=== PATIENT | male | born 1985 | race Caucasian/White ===

== ENCOUNTER → 2024-10-16 | Outpatient (CLI) | payer OTHER, SELFPAY ==
[2024-10-16 10:28] LABS: Collection Type, Urine Clean Catch; Squamous Epithelial Cell,Urine 0 /hpf (0-5)
[2024-10-16 10:39] LABS: Basophils # (Auto) 0.1 Thou/mm3 (0.0-0.2); Basophils % (Auto) 1 % (0-2.5); Eosinophils # (Auto) 0.2 Thou/mm3 (0.0-0.5); Eosinophils % (Auto) 2 % (0-10); Hemoglobin 15.7 g/dL (13.5-16.0); Immature Granulocytes % (Auto) 1 % (0-0); Immature Granulocytes Auto 0.07 Thou/mm3 (0.00-0.00); Lymphocytes # (Auto) 2.2 Thou/mm3 (1.0-4.8); Lymphocytes % (Auto) 33 % (10-50); Mean Corpuscular HGB Conc 35.7 g/dl (31.0-37.0); Mean Corpuscular Hemoglobin 31.3 pg (25.0-35.0); Mean Corpuscular Volume 88 fL (80-100); Monocytes # (Auto) 0.7 Thou/mm3 (0.0-0.8); Monocytes % (Auto) 10 % (0-12); Neutrophils # (Auto) 3.6 Thou/mm3 (1.8-7.7); Neutrophils % (Auto) 53 % (37-80); Nucleated Red Blood Cell % 0 /100 WBC (0); Platelet Count 191 Thou/mm3 (140-440); RDW Standard Deviation 39.2 fL (35.1-43.9); Red Blood Count 5.02 Miln/mm3 (4.50-5.90); White Blood Count 6.8 Thou/mm3 (3.8-10.6)
[2024-10-16 10:56] LABS: Glucose Estimated Average 100 mg/dL (80-131); Hemoglobin A1C 5.1 % Hgb (4.8-6.0)
[2024-10-16 11:05] LABS: Alanine Aminotransferase 92 U/L (10-49); Albumin, Serum 4.5 gm/dL (3.5-5.0); Albumin/Globulin Ratio 1.5 (1.2-2.2); Alkaline Phosphatase 92 U/L (46-116); Anion Gap 6 (7-16); Aspartate Amino Transferase 26 U/L (0-34); BUN/Creatinine Ratio 18 Ratio (12-20); Bilirubin,Total 0.4 mg/dL (0.3-1.2); Blood Urea Nitrogen 16 mg/dL (9-23); Calcium 9.8 mg/dL (8.3-10.6); Calcium (Corrected) 9.8 mg/dL (8.5-10.1); Carbon Dioxide 26.3 mMol/L (20.0-31.0); Cardiac Risk Estimate 5.3 RATIO (4.0-6.7); Chloride 105 mMol/L (98-107); Cholesterol 201 mg/dL (132-200); Creatinine (Component) 0.9 mg/dL (0.6-1.3); Glucose 102 mg/dL (74-106); HDL Cholesterol 38 mg/dL (40-60); LDL Cholesterol,Calculated 129 mg/dL (0-130); Osmolality,Calculated 275 (275-295); Potassium 4.4 mMol/L (3.4-5.1); Sodium 137 mMol/L (136-145); Thyroid Stimulating Hormone 1.32 uIU/mL (0.55-4.78); Total Protein 7.5 gm/dL (5.7-8.2); Triglycerides 171 mg/dL (30-150); eGFR > 60 See Note
[2024-10-16 11:07] LABS: Vitamin D 25 Hydroxy Total 19.7 ng/mL (7.3-40.2)
[2024-10-16 11:39] LABS: Bilirubin,Urine Negative (Negative); Blood,Urine Negative (Negative); Clarity,Urine Clear (Clear/Hazy); Color,Urine Lt-Yellow (Lt Yel-Yel); Culture Indicated,Urine Not Indicated; Glucose, Urine Negative (Negative); Ketones,Urine Negative (Negative); Leukocyte Esterase,Urine Negative (Negative); Nitrite,Urine Negative (Negative); PH,Urine 5.5 (5.0-7.0); Protein,Urine Negative (Neg - Trace); RBC,Urine 1 /hpf (0-3); Specific Gravity,Urine 1.027 (1.001-1.035); Urobilinogen,Urine Negative mg/dL (0.0-1.0); WBC,Urine 1 /hpf (0-5)
== END | disposition home or self-care (01) ==
PROVIDERS: PCP Family Medicine; Referring Provider Registered Nurse; Visit Provider Registered Nurse
DX: R79.89 Other specified abnormal findings of blood chemistry (principal)
CPT/HCPCS: 36415; 80053; 80061; 81001; 82306; 83036; 84443; 85025

== ENCOUNTER → 2025-01-11 | Outpatient (BNVA) | payer OTHER, SELFPAY | END | disposition home or self-care (01) | PROVIDERS: PCP Family Medicine; Referring Provider Family Medicine; Visit Provider Urology | DX: A63.0 Anogenital (venereal) warts (principal); Z30.2 Encounter for sterilization; E66.9 Obesity, unspecified; Z68.31 Body mass index [BMI] 31.0-31.9, adult | CPT/HCPCS: 81003; 99212; G0463 ==

== ENCOUNTER 2025-01-24 10:50 | Day surgery (SDC) | payer OTHER, SELFPAY ==
[2025-01-23 10:34] VITALS: BMI 31.8
[2025-01-24 11:21] VITALS: BP 139/93; PULSE 75; RESP 18; TEMP 36.9; O2SAT 97; BMI 30.9
[2025-01-24 15:03] VITALS: BP 145/98; PULSE 88; RESP 20; TEMP 36.7; O2SAT 96
--- NOTE | 2025-01-24 15:03 | SUR.PHASEII ---
1506 Patient arrived to recovery awake and talking to staff, breathing unlabored, vital signs stable, denies pain, dressing intact to penis; ointment, telfa, gauze, silk tape, no bleeding noted, lung sounds clear upon auscultation, bilateral radial pulses present when palpated, report received from Bjorn MAYER and Dr. Perez
[2025-01-24 15:08] VITALS: BP 142/98; PULSE 70; RESP 20; O2SAT 95
[2025-01-24 15:13] VITALS: BP 144/96; PULSE 72; RESP 15; O2SAT 97
[2025-01-24 15:18] VITALS: BP 137/94; PULSE 83; RESP 16; O2SAT 96
--- NOTE | 2025-01-24 15:24 | PD.SUROPNT ---
Date of Procedure 01/24/25 Pre Op Diagnosis Multiple lesions skin of the penis and scrotum rule out condylomatous lesions Post Op Diagnosis Same Procedure CO2 laser ablation of the lesion excision biopsy Findings Multiple lesion over the skin of the penis and the scrotum rule out condyloma's Procedure Description This is a 39-year-old gentleman who is seen in urology office on consultation he had multiple lesion over the skin of the penis and scrotum rule condyloma he was recommended excisional biopsy and laser ablation of the lesion procedure and complications were discussed with the patient in great detail informed consent is obtained Patient was brought to the operating room in a satisfactory condition after appropriate premedication was put on the operating table in a supine position IV sedation was given parts were prepped and draped in the usual sterile fashion. Local anesthesia was instilled into the multiple lesion over the skin of the penis and scrotum. With the CO2 laser laser ablation of the lesions were carried out and also I obtained excisional biopsy for pathology at the end of the procedure Silvadene ointment was applied to the skin and sterile dressings are applied patient after having tolerated the procedure well was sent to recovery room in a satisfactory condition to be discharged home to be followed in urology office Anesthesia local and IV sedation Pathology / specimen Other (Lesion of the skin of the penis) Estimated Blood Loss 0.2 Condition Stable Disposition PACU Surgeon Ramón Marcos MD Surgical Staff Operation Date: 01/24/25 13:20 Case Staff Anesthesiologist: Mert Perez
[2025-01-24 15:33] VITALS: BP 148/102; PULSE 68; RESP 20; TEMP 36.9; O2SAT 97
--- NOTE | 2025-01-24 15:45 | SUR.PHASEII ---
1545 Patient meets discharge criteria from recovery, awake and alert, breathing unlabored, vital signs stable, denies pain, dressing intact; no bleeding noted, patient ate two jello and drinking 7up; tolerated well, denies nausea, patient able to dress himself into his clothing, discharge instructions given via telephone on speaker phone to patient and patients due to patients having small children, both receptive of instructions, patient signed discharge instructions at car-side, patient given all his belongings prior to discharge, transported via wheelchair and left in a private vehicle.
== END 2025-01-24 15:47 | disposition home or self-care (01) ==
PROVIDERS: PCP Family Medicine; Referring Provider Urology; Visit Provider Urology
PROC: (CPT 54057; principal; 2025-01-24 13:05)
DX: A51.31 Condyloma latum (principal); L82.1 Other seborrheic keratosis
CPT/HCPCS: 54057; A4217; A4649; J2250; J2704; J3010; J3490; A9270; J0665

== ENCOUNTER → 2025-04-13 | Outpatient (BNVA) | payer OTHER, SELFPAY | END | disposition home or self-care (01) | PROVIDERS: PCP Family Medicine; Referring Provider Family Medicine; Visit Provider Urology | DX: N40.0 Benign prostatic hyperplasia without lower urinary tract symptoms (principal); Z30.2 Encounter for sterilization; E66.9 Obesity, unspecified; Z68.31 Body mass index [BMI] 31.0-31.9, adult | CPT/HCPCS: 81003; 99212; G0463 ==

== ENCOUNTER 2025-06-06 11:55 | Day surgery (SDC) | payer OTHER, SELFPAY ==
[2025-06-05 12:36] VITALS: BMI 30.4
--- NOTE | 2025-06-05 12:45 | SUR.PREOP ---
Interview over the phone, Pt will come in tomorrow at 1200, NPO and trim pubic hair.
[2025-06-06] VITALS (8 sets, daily range): BP systolic 109–138; BP diastolic 65–91; PULSE 67–83; RESP 13–20; TEMP 36.4–36.9; O2SAT 95–97; BMI 30.4
--- NOTE | 2025-06-06 18:11 | PD.SUROPNT ---
Date of Procedure 06/06/25 Pre Op Diagnosis Elective sterilization Post Op Diagnosis Same Procedure Bilateral vasectomy Findings Bilateral vas no pathology Procedure Description Indication for procedure this is 39-year-old gentleman he has 5 children desired bilateral vasectomy procedure and complications were discussed with patient in great detail informed consent is obtained. Literature regarding bilateral vasectomy was provided to the patient patient understood very well there is no warranty for permanent sterilization Patient was brought to the operating room in a satisfactory condition after appropriate premedication was put on the operating table in a supine position he was appropriately identified by surgeon and operating room staff site scope and indication of the procedure were reconfirmed with the patient general anesthesia was given uneventfully, parts were prepped and draped in a usual sterile fashion. Next the right vas deferens was palpated between 2 fingers and a thumb 2% lidocaine with quarter percent Marcaine was instilled appropriately vertical skin incision was made proper hemostasis was secured. Next the vas deferens was brought into the incision it was from its various fascial coverings between 2 silver clips centimeter of the vas deferens was excised. The lumen of the vas deferens was diathermized with coagulation diathermy distal end of the vas deferens was buried between various fascial layers. Skin was approximated with 3-0 chromic. Similar procedure was repeated on the opposite side. Next this sterile dressings were applied. Pressure bandage was given Patient having tolerated the procedure well and was sent to recovery room in a satisfactory condition to be discharged home with full postoperative instructions were verbally as well as in writing to be followed in urology office in 6 weeks' time. Anesthesia GETA Pathology / specimen None Estimated Blood Loss 0.2 Condition Stable Disposition PACU Surgeon Ramón Marcos MD Surgical Staff Operation Date: 06/06/25 14:00 <No data on this case meets the specified criteria>
--- NOTE | 2025-06-06 18:47 | SUR.PHASEI ---
pt received to [facility]. oral airway out on arrival. denies pain and nausea. vss. breathing even and unlabored. dressing cdi. report from dr pina and nurse ramiro.
--- NOTE | 2025-06-06 19:47 | SUR.PHASEII ---
pt discharged with via wheel chair. vss. dressing remains cdi. both verbalized dc instructions. signed by .
== END 2025-06-06 19:47 | disposition home or self-care (01) ==
PROVIDERS: Referring Provider Urology; Visit Provider Urology
PROC: (CPT 55250; principal; 2025-06-06 14:00)
DX: Z30.2 Encounter for sterilization (principal)
CPT/HCPCS: 55250; A4217; A4649; J2704; J3010; J3490; A9270; J0665

== ENCOUNTER → 2025-09-04 | Outpatient (BNVA) | payer OTHER, SELFPAY | END | disposition home or self-care (01) | PROVIDERS: PCP Family Medicine; Referring Provider Family Medicine; Visit Provider Physician Assistant | DX: Z98.52 Vasectomy status (principal) | CPT/HCPCS: Q3014 ==

== ENCOUNTER → 2025-09-10 | Outpatient (CLI) | payer OTHER, SELFPAY ==
[2025-09-10 13:02] LABS: Post Vasectomy Sperm Presence No Spermatozoa Seen (No Sperm)
== END | disposition home or self-care (01) ==
LOC: SLDO 10:39
PROVIDERS: Referring Provider Physician Assistant; Visit Provider Physician Assistant
DX: Z98.52 Vasectomy status (principal)
CPT/HCPCS: 89321